=== PATIENT | female | born 1975 ===

== ENCOUNTER 2017-08-29 23:49 | Inpatient (IN) ==
[2017-08-30] MEDS ORDERED: RINGER'S SOLUTION,LACTATED 1,000 ML IV PRN
[2017-08-30] MEDS ORDERED: PENICILLIN G POTASSIUM 5 MILLIONUNT in DEXTROSE 5 % IN WATER 100 ML IV ONE ×2
[2017-08-30] MEDS ORDERED: DEXTROSE 5%-LACTATED RINGERS 1,000 ML IV PRN
[2017-08-30] MEDS ORDERED: NALOXONE HCL 1 MG/1 ML SYRG IV PRN (03:39)
[2017-08-30] MEDS ORDERED: ONDANSETRON HCL/PF 2 MG/ML VIAL IV PRN ×2 (03:39)
[2017-08-30] MEDS ORDERED: BUPIVACAINE HCL/0.9 % NACL/PF 250 ML EP PRN (03:39)
[2017-08-30] MEDS ORDERED: fentaNYL CITRATE/PF 50 MCG/ML AMPUL IT SCH (03:45)
[2017-08-30] MEDS ORDERED: PENICILLIN G POTASSIUM 2.5 MILLIONUNT in DEXTROSE 5 % IN WATER 100 ML IV SCH ×2 (04:00)
--- NOTE | 2017-08-30 04:37 | OR ---
Anesthesia Procedure Note - Anesthesia Procedure Note Date of Service: 08/30/17 Narrative: Vital Signs - Last Taken Temp 36 C L 08/30/17 04:11 Pulse 94 08/30/17 04:11 Resp 18 08/30/17 04:11 BP 134/89 08/30/17 04:11 Pulse Ox 98 08/30/17 04:11 08/30/17 04:33 ANESTHESIA PROCEDURE NOTE Date of Procedure: 08/30/2017 Time of procedure: 4:15 AM. Performed by: ANGEL Arboleda CRNA, MSN Screed Operator: Anna Weathers RN. Preprocedure diagnosis: Active labor, labor pain. Post procedure diagnosis: Same. Procedure:Epidural for labor analgesia L3 4. Indications: Labor pain. Findings: See below. Details of the procedure: The patient was placed on the side of the bed in sitting positionand prepped with DuraPrep then draped in a sterile fashion. Lidocaine 1% was infiltrated to the skin and subcutaneous tissues at the level of the L3 4 interspace. An 18-gauge Touhy needle was used to approach the epidural space with loss of resistance technique. Once loss of resistance was achieved a 27-gauge spinal needle was passed through the epidural needle and CSF was contacted. After CSF returned, 20 mcg of fentanyl was injected in the spinal needle was removed the epidural catheter was then threaded approximately 4 cm in the epidural needle was removed. The catheter was taped in place and after careful aspiration 3 mL of 1.5% lidocaine with 1-200,000 epinephrine was injected without change in maternal heart rate or sensorium. . EBL: Minimal. Fluids: N/A. Specimen: N/A. Post procedure condition: The patient tolerated the procedure well with. Good Relief. No complications were noted. Thank you for this consultation. Zaid Hernandez CRNA, [employer] SYSTEMS ENGINEER, MSN
[2017-08-30] MEDS ORDERED: GLYCERIN/WITCH HAZEL LEAF 40 APPL BOX TP PRN (07:35)
[2017-08-30] MEDS ORDERED: BISACODYL 10 MG SUPP.RECT RC PRN (07:35)
[2017-08-30] MEDS ORDERED: BENZOCAINE/MENTHOL 81 SPRAY CAN TP PRN (07:35)
[2017-08-30] MEDS ORDERED: SENNOSIDES 8.6 MG TABLET PO PRN (07:35)
[2017-08-30] MEDS ORDERED: OXYTOCIN/DEXTROSE 5%-WATER 30 UNITS/500 ML BAG IV ONE ×2 (07:35)
[2017-08-30] MEDS ORDERED: oxyCODONE HCL/ACETAMINOPHEN 1 TAB TABLET PO PRN (07:35)
[2017-08-30] MEDS ORDERED: HYDROCORTISONE 30 APPL TUBE TP PRN (07:35)
--- NOTE | 2017-08-30 07:39 | OR ---
Operative Report - Dictated Report Narrative: Spontaneous Vaginal Delivery Viable female with APGARS of 8 at 1 min and 9 at 5 mins. She delivered at 0710. Presentation was direct OP. Bright red bleeding was noted as she was pushing. No nuchal cord was noted, anterior and posterior shoulder delivered without difficulty. He was placed on the maternal abdomen and was dried and stimulated. Cord was clamped and cut after approximately 60 seconds. Weight: tbd Placenta was delivered spontaneously and intact. A second-degree vaginal laceration repaired with 2-0 Vicryl. Estimated blood loss: 600 ml, mostly prior to the delivery of the baby Mother and baby tolerated delivery well. History for Definition: * The number of deliveries resulting in a live the patient experienced prior to current hospitalization * The previous delivery of live twins or any live multiple gestation is considered one live event. *If primagravida or nulliparous is documented select zero for the number of previous live births. Live Events: 1
[2017-08-30] MEDS ORDERED: RINGER'S SOLUTION,LACTATED 1,000 ML IV ONE (09:50)
[2017-08-30] MEDS ORDERED: LIDOCAINE HCL/EPINEPHRINE 30 ML VIAL IJ ONE (10:10)
--- NOTE | 2017-08-30 10:42 | OR ---
Operative Report - Dictated Report Narrative: Operative report: 08/30/2017 Preoperative diagnosis: , desires permanent sterilization Postoperative diagnosis: Same Procedure: bilateral salpingectomies via minilaparotomy Surgeon: Indu Dumont D.O. Healthcare Advisory Services Manager: OR staff Anesthesia: Gen. IV fluids: 1000 Milliliters Urine output: 200ml of dark concentrated urine Findings: Normal appearing uterus, tubes, and ovaries, with the fundus at the umbilicus EBL: Minimal Drains: None Pathology: Bilateral fallopian tubes Complications: None Condition: Stable The patient was taken to the operating room. Epidural Anesthesia was found to be adequate. The patient was prepped and draped in the normal sterile fashion in the supine position. Attention was then turned to the abdomen. Local anesthetic was then injected within the umbilicus. A 15 mm skin incision was then made with the scalpel. A hemostat was then used to bluntly dissect down to the fascia. The fascia was then grasped with [place] clamps and sharply entered. The peritoneum was then entered with clear visualization. The abdomen was then surveyed and noted as above. Attention was then turned to the right fallopian tube. The fallopian tube was then grasped with the [place] clamp. Electrocautery was then used to sequentially cauterize, cut, and remove the entire fallopian tube. This was then repeated on the opposite side. The fallopian tubes were then sent to pathology. The pedicles were inspected and found to be hemostatic. The fascia was reapproximated with 0 Vicryl. The subcutaneous tissue was reapproximated. The skin incisions were then reapproximated with 4-0 Vicryl, benzoin and Steri-Strips. A Band-Aid was then placed. Dark concentrated urine was noted throughout the entire procedure. The uterus was then expressed after the procedure and no active bleeding was noted. The pad was then changed. The patient tolerated the procedure well. Sponge, lap, needle, and instrument counts were correct throughout the entire procedure. The patient was taken to the recovery room in stable condition.
[2017-08-30] MEDS: oxyCODONE HCL/ACETAMINOPHEN 1 TAB TABLET PO PRN ×3 (12:14→19:43)
[2017-08-30] MEDS: DOCUSATE SODIUM 100 MG CAPSULE PO SCH ×3 (12:16→21:16)
[2017-08-30] MEDS: IBUPROFEN 800 MG TABLET PO PRN ×2 (13:41→19:43)
[2017-08-31] MEDS: IBUPROFEN 800 MG TABLET PO PRN ×3 (02:04→15:47)
[2017-08-31] MEDS: oxyCODONE HCL/ACETAMINOPHEN 1 TAB TABLET PO PRN ×3 (02:04→22:28)
[2017-08-31] MEDS: DOCUSATE SODIUM 100 MG CAPSULE PO SCH ×2 (09:08→22:28)
--- NOTE | 2017-08-31 09:43 | PN ---
Subjective - Date and Time Seen Date: 08/31/17 Subjective Narrative: day 1, s/p with minilaparotomy and bilateral salpingectomy. doing well. no complaints. ambulating and tolerating diet well. . normal lochia. Objective - Vitals Vitals: Last Vital Signs Temp 36.8 C 08/31/17 06:50 Pulse 87 08/31/17 06:50 Resp 18 08/31/17 06:50 BP 127/82 08/31/17 06:50 Pulse Ox 98 08/31/17 06:50 - Exam Constitutional: Present: Alert, Oriented x3, Cooperative Respiratory: Present: no respiratory distress Cardiovascular/Chest: Present: normal peripheral pulses Abdomen: Present: soft, nontender, nondistended, other - fundus at umbilicus, non-tender Extremity: Present: normal range of motion, no pedal edema, no calf tenderness Skin Exam: Present: normal color, warm/dry, no cyanosis Appearance: Present: appropriate appearance Eye contact: Present: cooperative, good eye contact, normal speech Cauti Physician Documentation - Urinary Catheter Management Urethral ([place]) Date of Insertion: 08/30/17 Time of Insertion: 05:15 Assessment/Plan Plan Narrative: A: day 1, s/p and minilaparotomy with BS, stable and well. Plan: routine care. ambulation encouraged. Eliceo Potter MD
[2017-08-31 20:09] VITALS: BP 123/69
[2017-09-01] MEDS: IBUPROFEN 800 MG TABLET PO PRN (05:00)
[2017-09-01] MEDS: DOCUSATE SODIUM 100 MG CAPSULE PO SCH ×2 (10:09→10:10)
--- NOTE | 2017-09-01 12:39 | PN ---
Subjective - Date and Time Seen Date: 09/01/17 Subjective Narrative: day 2, s/p doing well. no complaints. . normal lochia. ready to go home. Objective - Vitals Vitals: Last Vital Signs Temp 36.4 C L 08/31/17 19:45 Pulse 69 08/31/17 19:45 Resp 16 08/31/17 19:45 BP 123/69 08/31/17 19:45 Pulse Ox 98 08/31/17 19:45 - Exam Constitutional: Present: Alert, Oriented x3, Cooperative Respiratory: Present: no respiratory distress Cardiovascular/Chest: Present: normal peripheral pulses Abdomen: Present: soft, nontender, nondistended, other - fundus firm below umbilicus. Extremity: Present: normal range of motion, no pedal edema, no calf tenderness Skin Exam: Present: normal color, warm/dry Appearance: Present: appropriate appearance Eye contact: Present: cooperative, good eye contact, normal speech Cauti Physician Documentation - Urinary Catheter Management Urethral ([place]) Date of Insertion: 08/30/17 Time of Insertion: 05:15 Assessment/Plan Plan Narrative: A: day 2, s/p stable and well. Plan: will discharge home today. Eliceo Potter MD
== END 2017-09-01 13:45 | disposition home or self-care (01) | DRG 767 ==
LOC: UNDOADMIN 23:49 → OB 23:49
PROVIDERS: ADMIT Obstetrics & Gynecology Gynecologic Oncology; ATTEND Obstetrics & Gynecology Gynecologic Oncology
DX: Z3A.39 39 weeks gestation of pregnancy; Z37.0 Single live birth; Z30.2 Encounter for sterilization; O70.1 Second degree perineal laceration during delivery; O99.824 Streptococcus B carrier state complicating childbirth
CPT/HCPCS: 59025; 88302